=== PATIENT | female | born 1960 | race Caucasian/White ===

== ENCOUNTER 2024-11-19 00:10 | Emergency (ER) | payer MEDICARE ==
[~2024-11-19] VITALS: Ht 162.6 cm; Wt 56.7 kg
[2024-11-19 03:51] LABS: Source, Urine Clean Catch
[2024-11-19 04:19] LABS: Appearance, Urine Hazy (Clear); Bilirubin, Urine Neg (Neg); Blood, Urine 4+ (Neg); Color, Urine Yellow (P-Yellow); Glucose Qualitative, Urine Neg (Neg); Ketones, Urine Neg (Neg); Leukocyte Esterase, Urine 3+ (Neg); Nitrite, Urine Pos (Neg); Protein, Urine 2+ (Neg); Specific Gravity, Urine 1.015 (1.003-1.022); Urobilinogen, Urine NORM (Normal)
[2024-11-19 04:29] LABS: Amorphous Mod (0-Heavy); Bacteria Many /hpf; Red Blood Cells, Urine 0-2 /hpf (0-2); Squamous Epithelial Cells Few /hpf (Few); White Blood Cells, Urine 50-100 /hpf (0-5)
[2024-11-19] MEDS ORDERED: CEPH500 PO (04:45)
[2024-11-19] MEDS ORDERED: Cephalexin Monohydrate 500 MG Cap PO ONE (04:45)
== END 2024-11-19 09:45 | disposition home or self-care (01) ==
LOC: ER 00:10
PROVIDERS: Emergency Medicine
DX: N39.0 Urinary tract infection, site not specified (principal); Z59.89 Other problems related to housing and economic circumstances
CPT/HCPCS: 81001; 87077; 87086; 87186; 99283; A9270; P9612